=== PATIENT | female | born 2000 ===

== ENCOUNTER 2024-06-13 13:58 | Emergency (ER) | payer SELFPAY ==
[2024-06-13] MEDS: Ketorolac 30 MG/ML SDV IM ONE (14:18)
== END 2024-06-13 15:10 | disposition home or self-care (01) ==
LOC: LL.ED 13:58
DX: S89.92XA Unspecified injury of left lower leg, initial encounter (principal); W01.0XXA Fall on same level from slipping, tripping and stumbling without subsequent striking against object, initial encounter
CPT/HCPCS: 73562-LT; 96372; 99283; J1885

== ENCOUNTER 2024-06-17 02:53 | Emergency (ER) | payer SELFPAY ==
[2024-06-17] MEDS: Take Home: oxyCODONE HCl 5 MG Tab, 5 Tab Pack PO ONE (04:15)
== END 2024-06-17 04:28 ==
LOC: LL.ED 02:53
DX: S89.92XA Unspecified injury of left lower leg, initial encounter (principal); Z79.899 Other long term (current) drug therapy; W19.XXXA Unspecified fall, initial encounter; Y92.511 Restaurant or cafe as the place of occurrence of the external cause
CPT/HCPCS: 99283; A9270-GY

== ENCOUNTER 2024-10-15 16:32 | Emergency (ER) | payer SELFPAY | END 2024-10-15 16:35 | disposition left against medical advice (07) | LOC: LL.ED 16:32 | DX: Z53.20 Procedure and treatment not carried out because of patient's decision for unspecified reasons (principal) | CPT/HCPCS: 99284 ==